=== PATIENT | male | born 1945 | race Caucasian/White ===

== ENCOUNTER 2019-01-25 17:15 | Emergency (ER) | payer MEDICARE, SELFPAY ==
[2019-01-25] VITALS (20 sets, daily range): BP systolic 165–198; BP diastolic 91–121; PULSE 74–93; RESP 11–22; O2SAT 89–95
--- NOTE | 2019-01-25 17:18 | DI.CT_ITS ---
EXAM: CT HEAD - STROKE PROTOCOL CLINICAL HISTORY: stroke. TECHNIQUE: A noncontrast enhanced cranial CT was carried out. COMPARISON: No exams were available for comparison FINDINGS: There is no evidence of an intra or extra-axial hemorrhage or mass. Small regions of diminished abso rption are noted in the frontoparietal white matter consistent with small vessel disease. There is n o evidence of a skull fracture. The paranasal sinuses are unremarkable. There is no evidence of a ma stoid effusion. IMPRESSION: No acute abnormality is demonstrated.
--- NOTE | 2019-01-25 17:47 | DI.VRAD_ITS ---
PROCEDURE INFORMATION: Exam: CT Head Without Contrast Exam date and time: 01/25/2019 5:26 PM Clinical history: 73 years old, male; Other: Stroke TECHNIQUE: Imaging protocol: Computed tomography of the head without contrast. Other technique: STROKE PROTOCOL was implemented. COMPARISON: CT HEAD WITHOUT STROKE PROTOCOL 09/10/2015 2:26 PM FINDINGS: Brain: No hemorrhage. No edema or mass effect. Ventricles: Normal. No ventriculomegaly. Bones/joints: Unremarkable. No acute fracture. Sinuses: No acute sinusitis. Mastoid air cells: Unremarkable. Soft tissues: Unremarkable. IMPRESSION: No acute intracranial abnormality. ASSESSMENT: ASPECTS ([place] Stroke Program Early CT Score) is 10. Dictated and Authenticated by: Luis A Ramos MD. Ordering:WALESKA Lu MD
[2019-01-25] MEDS: levETIRAcetam 500 MG/5 ML VIAL (17:48)
--- NOTE | 2019-01-25 17:50 | W.ED.GENAD ---
Discharge Plan Disposition Patient Disposition: [facility] Condition: Stable Discharge Details Chief Complaint: CVA/TIA Clinical Impression: Acute cerebrovascular accident, Altered mental status Primary Care Provider: Unknown,Unknown ED Provider: Tabitha Meyers Home Meds and New Rx's Prescriptions: No Action oxcarbazepine 600 mg Tablet 600 mg PO BID RF: 0 metoprolol tartrate 25 mg Tablet 25 mg PO BID RF: 0 rivaroxaban 20 mg Tablet 20 mg PO QPM RF: 0 Medical Decision Making 1736 -- 73yo with history of multiple CVA, hypertension, lung cancer status post lobectomy of lung presents with strokelike symptoms. noted that patient was mumbling. Stroke alert called prior to arrival to ED. On arrival to ED, patient unable to follow any commands. He is staring and not tracking with eyes. Appears to have global weakness as he is not lifting bilateral arms or legs. Able to squeeze with left hand. Patient sent for stat CT head and CT head negative. 174 --staff emergency called in radiology due to patient seizing. Seizure lasted approximately 1 minute. Patient given 1 g of Keppra on return to ED. 1750 --BP on return to room hypertensive 198/121. Patient still unable to follow commands. Per discussion with in room, last seen normal 1430. states that patient is normally alert and oriented x3. states that patient has had multiple CVAs, but she thinks his last hemorrhagic stroke was 5 to 6 years ago. Has multiple previous strokes but no residual deficits. Timeframe for TPA just at the 3-hour 15-minute carisa. NIH score 24. 1752 --called [facility] transfer center -images pushed and will have neurology call back. 1825 --d/w [facility] neurology -Per their records, patient had a history of intraparenchymal hemorrhage in 2016, and with his history of seizure here, not a candidate for TPA. Med list also confirmed and he is on Xarelto. states that he has been taking all of his medications. Accepts patient for transfer to neuro ICU. Accepting physician Dr. Lyons. Would like an additional 1 g of Keppra given. Patient is protecting his airway, no gag reflex. He is currently tracking with eyes. He is still not following commands. We will plan to fly by [place]. Unclear if presentation due to stroke or seizure but considering patient's history and presentation, will transfer emergently. Labs resulted. Sodium 128. Troponin negative. Medical Records Medical records reviewed: Yes I reviewed the patient's medical records. Imaging Data Radiologic Study: Radiologist's impression: CT Head Without Contrast Exam date and time: 01/25/2019 5:26 PM Clinical history: 73 years old, male; Other: Stroke TECHNIQUE: Imaging protocol: Computed tomography of the head without contrast. Other technique: STROKE PROTOCOL was implemented. COMPARISON: CT HEAD WITHOUT STROKE PROTOCOL 09/10/2015 2:26 PM FINDINGS: Brain: No hemorrhage. No edema or mass effect. Ventricles: Normal. No ventriculomegaly. Bones/joints: Unremarkable. No acute fracture. Sinuses: No acute sinusitis. Mastoid air cells: Unremarkable. Soft tissues: Unremarkable. IMPRESSION: No acute intracranial abnormality. Lab Data Lab results reviewed: Yes I reviewed the patient's lab results. HPI General Mode of arrival: EMS. Date/Time Provider Initiated Documentation: 01/25/19 17:18. Limitations to Documentation: altered mental status. Information obtained by: EMS. HPI Narrative: Patient is a 73-year-old male with a history of CVA, hypertension, lung cancer with lobectomy, seizures who presents with strokelike symptoms. Last seen normal at 2:30 PM. EMS states that patient not following commands and appears to have weakness on right side. Related Data Home Medications Medication Instructions Recorded Confirmed metoprolol tartrate 25 mg PO BID 01/25/19 01/25/19 oxcarbazepine 600 mg PO BID 01/25/19 01/25/19 rivaroxaban 20 mg PO QPM 01/25/19 01/25/19 Allergies Allergy/AdvReac Type Severity Reaction Status Date / Time No Known Allergies Allergy Unverified 09/10/15 15:16 General Stated Complaint: CVA/TIA GIANCARLO: 2 Review of Systems Review of Systems ROS Unobtainable: Unobtainable due to mental status [facility] Medical History CVA (cerebral vascular accident) (Chronic) Hypertension (Chronic) Lung cancer (Chronic) [place] [facility] [place] problem Seizures (Acute) Stroke (Chronic) Surgical History S/P lobectomy of lung (Acute) Social History Smoking/Tobacco Use Status: Former Tobacco Use Alcohol Intake: never Drug use: Never Substance use type: does not use Additional Social history: unable to assess Exam Const Orientation: alert and awake HENMT Head: normal to inspection Ears: hearing grossly normal bilaterally and external ears normal General nose exam: external nose normal Face and sinus: normal facial exam Mouth: oral mucosae normal Teeth and gingiva: dentition normal Throat: posterior oropharynx normal Eyes General: appearance normal, both eyes and all related structures Eyelids: eyelids normal Pupils: PERRL EOM: EOM intact bilaterally Neck Neck: normal visual inspection Lymphatic: no lymphadenopathy noted Chest Chest: normal inspection of the chest Resp Effort & Inspection: normal respiratory effort and able to speak in complete sentences Auscultation: clear to auscultation bilaterally Cardio Rate: regular rate Rhythm: regular rhythm GI Inspection: normal to inspection Palpation: soft, not firm, no guarding, no hepatosplenomegaly, no masses and nontender Auscultation: normal bowel sounds Skin General skin exam: no rashes or lesions noted Neuro General: alert and awake Cognition: abnormal cognition Speech: abnormal speech garbled Other: Able to squeeze with left hand. Otherwise does not follow commands to lift arms or legs. Does not track with eyes. Does not follow commands for testing cranial nerves. Extrem General: normal to inspection, full ROM and normal capillary refill Psych Appearance: grossly normal Mental Status: mental status grossly normal Speech and Movement: speech and movement normal Affect: normal affect Thought Process: normal
--- NOTE | 2019-01-25 17:54 | NUR.NOTE ---
Nursing Note: Patient had a tonic clonic seizure while in CT with RN present, lasting approx 1 min. Airway patent, pt continues to have difficulty speaking.
[2019-01-25 18:08] LABS: Abs Immature Grans 0.05 k/cumm (0.0-0.09); Absolute Basophil Count 0.03 k/cumm (0.0-0.2); Absolute Eosinophil Count 0.21 k/cumm (0.0-0.7); Absolute Lymphocyte Count 2.44 k/cumm (1.2-3.4); Absolute Monocyte Count 1.02 k/cumm (0.11-0.7); Absolute Neutrophil Count 5.54 k/cumm (1.2-6.7); Basophils % 0.3; Eosinophils % 2.3; HCT 39.4 % (40.0-50.0); Immature Grans % 0.5; Lymphocytes % 26.3; Mean Corp. HGB Concentration 35.5 g/dL (32.0-36.0); Mean Corpuscular Hemoglobin 31.3 pg (27.0-33.0); Mean Corpuscular Volume 87.9 fL (80-95); Mean Platelet Volume 9.5 fL (8.0-11.0); Neutrophils % 59.6; Platelet Count 167 x1000/uL (130-400); RBC 4.48 m/cumm (4.50-6.00); White Blood Cell Count 9.29 k/cumm (4.4-10.8)
[2019-01-25 18:18] LABS: INR 1.1 (0.9-1.1); PTT Activated 24.4 sec (21.0-31.4); Prothrombin Time 10.9 sec (9.3-11.0)
[2019-01-25 18:27] LABS: ALT 20 U/L (16-63); AST 20 U/L (15-37); Alkaline Phosphatase 100 U/L (46-116); Anion Gap 8.4 mmol/L (3-11); BUN 12 mg/dL (7-18); Bilirubin, Total 0.4 mg/dL (0.2-1.0); CO2 24.6 mmol/L (21.0-32.0); CREATININE 0.97 mg/dL (0.70-1.30); Calcium 8.5 mg/dL (8.5-10.1); Chloride 95 mmol/L (98-107); Glucose 113 mg/dL (70-100); Sodium 128 mmol/L (136-145); Total Protein 7.8 g/dL (6.4-8.2)
[2019-01-25 18:30] LABS: Troponin I < 0.05 ng/mL (0.00-0.06)
[2019-01-25] MEDS: levETIRAcetam 1,000 MG in Normal Saline 100 ML 400 MG IVPB (18:58)
== END 2019-01-25 19:25 | disposition short-term general hospital (02) ==
LOC: ER 18:45
PROVIDERS: Emergency Provider Physician Assistant
DX: G45.9 Transient cerebral ischemic attack, unspecified (principal); R41.82 Altered mental status, unspecified; R56.9 Unspecified convulsions; Z86.73 Personal history of transient ischemic attack (TIA), and cerebral infarction without residual deficits; I10 Essential (primary) hypertension
CPT/HCPCS: 36415; 80053; 86850; 86900; 86901; 96365; 99285; 70450; 84484; 85025; 85610; 85730; J1953

== ENCOUNTER 2022-09-22 17:43 | Outpatient (REF) | payer MEDICARE, SELFPAY | END 2022-09-22 17:44 | disposition home or self-care (01) | LOC: LBN 17:43 | PROVIDERS: Visit Provider Nurse Practitioner Family | DX: L08.89 Other specified local infections of the skin and subcutaneous tissue (principal) | CPT/HCPCS: 87077; 87070; 87186; 87205 ==